=== PATIENT | male | born 1985 | race Caucasian/White ===

== ENCOUNTER 2020-08-06 15:00 | Outpatient (RCR) | payer OTHER, SELFPAY | END 2020-08-06 16:30 | disposition home or self-care (01) | LOC: PT.CARL 15:00 | PROVIDERS: Visit Provider Orthopaedic Surgery Adult Reconstructive Orthopaedic Surgery | DX: S62.92XA Unspecified fracture of left hand, initial encounter for closed fracture (principal) | CPT/HCPCS: 97010; 97110; 97140; 97163; 97164 ==